=== PATIENT | female | born 1980 | race Caucasian/White ===

== ENCOUNTER 2018-11-01 09:30 | Inpatient (IN) | payer OTHER ==
[~2018-11-01] VITALS: Ht 157.5 cm; Wt 95.3 kg
[~2018-11-01 09:30] MED LIST: KETO10TA2 PO; TYLENOL-CODEINE1 TAB PO
[2018-11-01] MEDS ORDERED: METHOTREXATE PO (11:37)
[2018-11-01] MEDS ORDERED: CYMBALTA30 MG PO (11:37)
[2018-11-01] MEDS ORDERED: ELAVIL PO (11:38)
[2018-11-04] MEDS ORDERED: AMITRIPTYLINE H25 MG PO (08:22)
[2018-11-04] MEDS ORDERED: METHOTREXATE2.5 MG PO (08:24)
[2018-11-04] MEDS ORDERED: Tylenol #3 PO (09:51)
== END 2018-11-04 10:33 | DRG 743 ==
LOC: SURH 11-03 09:30 → O/R 11-03 09:57 → OB/GYN 11-03 16:51 → SURH 11-03 21:30 → OB/GYN 11-04 10:33
PROVIDERS: ADMIT Obstetrics & Gynecology
PROC: 0USG7ZZ Reposition Vagina, Via Natural or Artificial Opening (ICD-10-PCS; 2018-11-03)
PROC: 0TJB8ZZ Inspection of Bladder, Via Natural or Artificial Opening Endoscopic (ICD-10-PCS; 2018-11-03)
PROC: 0UT97ZZ Resection of Uterus, Via Natural or Artificial Opening (ICD-10-PCS; principal; 2018-11-03 21:30)
DX: N80.0 Endometriosis of uterus (principal); N81.11 Cystocele, midline